=== PATIENT | female | born 1995 | race Caucasian/White ===

== ENCOUNTER 2019-02-03 21:34 | Emergency (ER) | payer OTHER ==
[~2019-02-03] VITALS: Ht 160 cm; Wt 61.2 kg
[2019-02-03] MEDS ORDERED: PREDNISONE (21:43)
[2019-02-03 23:39] VITALS: BP 128/74
== END 2019-02-03 23:40 | disposition home or self-care (01) ==
LOC: M.ERS 21:34
DX: T78.40XA Allergy, unspecified, initial encounter (principal)